=== PATIENT | male | born 1960 | race Caucasian/White ===

== ENCOUNTER 2020-04-28 11:55 | Outpatient (CLI) | payer OTHER ==
[2020-04-29] MEDS ORDERED: IPRATROPIUM NEB FS 0.5 MG/2.5 ML AMPUL.NEB ONE (17:02)
[2020-04-29] MEDS ORDERED: ALBUTEROL FS 2.5 MG/3 ML VIAL.NEB ONE (17:02)
== END 2020-04-28 23:59 | disposition home or self-care (01) ==
LOC: LAB 11:55
PROVIDERS: ATTEND Specialist
DX: Z01.812 Encounter for preprocedural laboratory examination (principal); Z20.828 Contact with and (suspected) exposure to other viral communicable diseases
CPT/HCPCS: 87426; C9803

== ENCOUNTER 2020-05-03 05:37 | Day surgery (SDC) | payer OTHER ==
[~2020-05-03] VITALS: Ht 188 cm; Wt 115.7 kg
[2020-05-03] VITALS (7 sets, daily range): BP systolic 119–143; BP diastolic 71–83
--- NOTE | 2020-05-03 05:40 | NUR ---
DAY SURGERY PATIENT IS A 59 YO MALE AMBULATORY, ALERT, ORIENTED X3, ABLE TO VERBALIZE NEEDS, CONSENT [facility]O SURGERY SIGNED AND MD EXPLAINED THE PROCEDURE. NO PAIN REPORTED AND OBSERVED, BELONGINGS TO BE WITH PATIENT , VITAL SIGNS CHECKED, IV SITE INSERTED ON RIGHT FORE ARM GAUGE 20 PATENT. ADMISSION DOCUMENTATION ,
--- NOTE | 2020-05-03 06:40 | NUR ---
PATIENT WAS WHEELED ON A GURNEY BY 2 OPERATING NURSES, FOR SURGERY, ALERT, ORIENTED
[2020-05-03] MEDS ORDERED: ANESTHESIA TRAY IN PYXIS 1 EA TRAY MC ONE (06:43)
[2020-05-03] MEDS ORDERED: LIDOCAINE 1% INJ 50 ML MDV IJ ONE (06:44)
[2020-05-03] MEDS ORDERED: EPINEPHRINE (1:1000) 1 MG/ML AMPUL ONE (06:44)
[2020-05-03] MEDS ORDERED: MIDAZOLAM HCL 2 MG/2ML VIAL ONE (06:56)
[2020-05-03] MEDS ORDERED: HYDROMORPHONE INJ 2 MG/ML DISP.SYRIN ONE (06:57)
[2020-05-03] MEDS ORDERED: FENTANYL PF 100MCG/2ML AMPUL ONE (06:57)
[2020-05-03] MEDS ORDERED: FENTANYL PF 250MCG/5ML AMPUL ONE (06:57)
[2020-05-03] MEDS ORDERED: ROCURONIUM BROMIDE 50 MG/5 ML ONE (06:58)
[2020-05-03] MEDS ORDERED: FAMOTIDINE/PF INJ 20 MG/2 ML VIAL IV ONE (06:58)
[2020-05-03] MEDS ORDERED: BUPIVACAINE 0.25% 75 MG/30 ML VIAL ONE (06:59)
[2020-05-03] MEDS ORDERED: HYDROMORPHONE 1 MG/1 ML DISP.SYRIN ONE (09:29)
--- NOTE | 2020-05-03 10:32 | NUR ---
RN MS NOTES RECEIVED PT FROM O.R. STAFF VIA BED, PT IS AWAKE, ALERT AND ORIENTED, WITH COMPLAINT OF RIGHT SHOULDER PAIN 03/17, DRESSING INTACT AND DRY, KEPT WARM AND COMFORTABLE IN BED, VITALS TAKEN AND RECORDED, POST OP ORDERS RECEIVED, NOTED AND CARRIED OUT.
[2020-05-03] MEDS ORDERED: EZET10TA32 PO (10:49)
[2020-05-03] MEDS ORDERED: ATOR40TA PO (10:49)
[2020-05-03] MEDS ORDERED: BUPR450T3 PO (10:49)
[2020-05-03] MEDS ORDERED: GABA-532 PO (10:49)
[2020-05-03] MEDS ORDERED: ASPI-1169 PO (10:49)
[2020-05-03] MEDS ORDERED: CLOP75TA15 PO (10:49)
[2020-05-03] MEDS ORDERED: TAMS-12 PO (10:49)
[2020-05-03] MEDS ORDERED: HYDR-3980 PO (10:49)
[2020-05-03] MEDS ORDERED: FEXO1TAB11 PO (10:49)
[2020-05-03] MEDS ORDERED: ACET-2605 PO (10:49)
[2020-05-03] MEDS ORDERED: MULT-1168 PO (10:49)
[2020-05-03] MEDS ORDERED: HYDROCODONE/APAP 5/325MG TABLET PO PRN ×2 (13:00)
--- NOTE | 2020-05-03 13:19 | NUR ---
RN MS NOTES PT AWAKE, ALERT AND ORIENTED, SITTING IN BED, PAIN MEDS GIVEN ORDERED, RESPIRATIONS NORMAL, SLING AT RIGHT ARM IN PLACE, CALL LIGHT WITHIN REACH, NEEDS ATTENDED, DOES NOT WANT TO EAT FOR NOW, PT REQUESTED FOR JUICE AND WATER.
--- NOTE | 2020-05-03 16:28 | NUR ---
RN MS NOTES PT AWAKE, ALERT AND ORIENTED, SITTING IN BED, NO COMPLAINT OF PAIN AT THIS TIME, RESPIRATIONS NORMAL, VITALS STABLE, PT TO DISCHARGE PER DR. MENDZOA'S ORDER, DISCHARGE INSTRUCTIONS PROVIDED TO PT, VERBALIZED UNDERSTANDING, BELONGINGS ACCOUNTED FOR, PT TO SEE DR. MENDOZA IN 7-10 DAYS FOR FOLLOW UP, PT VERBALIZED UNDERSTANDING, SLING AT RIGHT ARM IN PLACE, ASSISTED PT TO WHEELCHAIR, ASSISTED TO HOSPITAL LOBBY, PICKED UP BY FAMILY MEMBER, LEFT VIA PRIVATE CAR IN STABLE CONDITION.
== END 2020-05-03 18:00 | disposition home or self-care (01) ==
LOC: DS 05:37 → UNDOADMIN 05:39 → MED 05:39 → UNDODISIN 16:15 → DS 18:00
PROVIDERS: ATTEND Specialist
DX: M75.41 Impingement syndrome of right shoulder (principal); E66.01 Morbid (severe) obesity due to excess calories; K21.9 Gastro-esophageal reflux disease without esophagitis; F32.9 Major depressive disorder, single episode, unspecified; Z79.899 Other long term (current) drug therapy
CPT/HCPCS: 29826; 29827; 36415; 86850; 87081; A4217; C1713; J0171; J1170 ×2; J2250; J3010 ×2; J3490 ×2; G0378; J0690; J2405; J2704; J2765

== ENCOUNTER 2020-08-18 14:13 | Outpatient (CLI) | payer OTHER ==
[~2020-08-18 14:13] MED LIST: ACET-2605 PO; ASPI-1169 PO; ATOR40TA PO; BUPR450T3 PO; CLOP75TA15 PO; EZET10TA32 PO; FEXO1TAB11 PO; GABA-532 PO; HYDR-3980 PO; MULT-1168 PO; TAMS-12 PO
== END 2020-08-18 23:59 | disposition home or self-care (01) ==
LOC: LAB 14:13
PROVIDERS: ATTEND Specialist
DX: Z01.812 Encounter for preprocedural laboratory examination (principal); Z20.828 Contact with and (suspected) exposure to other viral communicable diseases
CPT/HCPCS: 87426; C9803; U0003

== ENCOUNTER 2020-08-23 06:12 | Day surgery (SDC) | payer OTHER ==
[2020-08-23] MEDS ORDERED: methylPREDNISolone ACETATE 80 MG/ML VIAL ONE (06:33)
[2020-08-23] MEDS ORDERED: LIDOCAINE 1% INJ 50 ML MDV IJ ONE (06:33)
[2020-08-23] MEDS ORDERED: MIDAZOLAM HCL 2 MG/2ML VIAL ONE (07:01)
== END 2020-08-23 10:10 | disposition home or self-care (01) ==
LOC: DS 06:12
PROVIDERS: ATTEND Specialist
DX: S83.232A Complex tear of medial meniscus, current injury, left knee, initial encounter (principal); X58.XXXA Exposure to other specified factors, initial encounter; Y93.89 Activity, other specified; Y92.89 Other specified places as the place of occurrence of the external cause; Y99.8 Other external cause status; M94.262 Chondromalacia, left knee; F32.9 Major depressive disorder, single episode, unspecified; K21.9 Gastro-esophageal reflux disease without esophagitis; Z79.899 Other long term (current) drug therapy
CPT/HCPCS: 29881; A4217; A6253; J0690; J1040; J1885; J2250; J2405; J2704; J2765; J3490 ×2